=== PATIENT | female | born 1950 | race Caucasian/White ===

== ENCOUNTER 2023-05-08 17:37 | Inpatient (IN) | payer MEDICARE, BC ==
[~2023-05-08] VITALS: Ht 165.1 cm; Wt 99.3 kg
[2023-05-08 18:31] LABS: Basophils # (auto) 0.1 10 ^3/uL (0-0.2); Basophils % (auto) 0.9 % (0.0-2.0); Eosinophils # (auto) 0.1 10 ^3/uL (0-0.8); Eosinophils % (auto) 1.6 % (0.0-7.0); Hematocrit 36.3 % (36.0-46.0); Hemoglobin 12.5 g/dL (12.2-16.2); Lymphocytes # (auto) 1.7 10 ^3/uL (0.4-5.4); Lymphocytes % (auto) 23.5 % (10.0-50.0); Mean Corpuscular Hemoglobin 33.1 pg (28.0-32.0); Mean Corpuscular Hgb Conc. 34.3 g/dL (32.0-36.0); Mean Corpuscular Volume 96.3 fL (80.0-100.0); Monocytes # (auto) 0.5 10 ^3/uL (0-1.3); Monocytes % (auto) 6.1 % (0.0-12.0); Neutrophils % (auto) 67.9 % (37.0-80.0); Nucleated Red Blood Cells % 0.2 %; Red Blood Cells 3.77 10^6/uL (4.0-5.20); Red Cell Distribution Width 12.5 % (11.8-14.3); White Blood Cell 7.4 10^3/uL (4.4-10.8)
[2023-05-08 18:45] LABS: INR 1.07 (0.9-1.15); Partial Thromboplastin Time 26.5 SEC (24.5-34.5)
[2023-05-08 18:49] LABS: Albumin 3.7 g/dL (3.4-5.0); Calcium 7.3 mg/dL (8.5-10.1); Potassium 4.1 mmol/L (3.5-5.1)
[2023-05-08 18:52] LABS: BUN/Creatinine Ratio 14.6 (10.0-20.0); Bilirubin, Total 0.3 mg/dL (0.2-1.0); Total Protein 7.2 g/dL (6.4-8.2)
[2023-05-08 18:59] LABS: Free T3 3.06 pg/mL (2.3-4.2); Free T4 (Free Thyroxine) 1.31 ng/dL (0.89-1.76)
[2023-05-08] MEDS ORDERED: CALCITRIOL 0.25 MCG CAP PO ONE (21:15)
[2023-05-08] MEDS ORDERED: ACETAMINOPHEN 325 MG TAB PO PRN (21:30)
[2023-05-08] MEDS ORDERED: DOCUSATE SOD 100 MG CAP PO PRN (21:30)
[2023-05-08] MEDS ORDERED: ONDANSETRON HCL 4 MG/2 ML VIAL IV PRN (21:30)
[2023-05-08] MEDS ORDERED: ATORVASTATIN 20 MG TAB PO SCH (22:00)
[2023-05-08] MEDS ORDERED: CALCIUM W/VIT D (600MG/400IU) TAB PO ONE (22:45)
[2023-05-08] MEDS ORDERED: NITROGLYCERIN 0.4 MG SL TAB SL PRN (23:30)
[2023-05-08] MEDS ORDERED: MORPHINE SULFATE INJ 2 MG/ml SYRG IV PRN (23:30)
[2023-05-09] VITALS (7 sets, daily range): BP systolic 110–140; BP diastolic 49–61; PULSE 59–78; RESP 15–18; TEMP 97.6–97.8; O2SAT 95–97
[2023-05-09] MEDS: SODIUM CHLORIDE 0.9% 1,000 ML IV SCH ×2 (00:01→14:10)
[2023-05-09] MEDS: LEVOTHYROXINE SODIUM 88 MCG TAB PO SCH (06:31)
[2023-05-09 06:37] LABS: Potassium 3.2 mmol/L (3.5-5.1)
[2023-05-09 06:52] LABS: Albumin 3.3 g/dL (3.4-5.0); BUN/Creatinine Ratio 17.1 (10.0-20.0); Bilirubin, Total 0.3 mg/dL (0.2-1.0); Calcium 7.4 mg/dL (8.5-10.1); Total Protein 6.8 g/dL (6.4-8.2)
[2023-05-09 07:05] LABS: Basophils # (auto) 0 10 ^3/uL (0-0.2); Basophils % (auto) 0.4 % (0.0-2.0); Eosinophils # (auto) 0.2 10 ^3/uL (0-0.8); Eosinophils % (auto) 2.6 % (0.0-7.0); Hematocrit 32.5 % (36.0-46.0); Hemoglobin 11.3 g/dL (12.2-16.2); Lymphocytes # (auto) 1.6 10 ^3/uL (0.4-5.4); Mean Corpuscular Hemoglobin 33.1 pg (28.0-32.0); Mean Corpuscular Hgb Conc. 34.9 g/dL (32.0-36.0); Mean Corpuscular Volume 94.9 fL (80.0-100.0); Monocytes # (auto) 0.5 10 ^3/uL (0-1.3); Monocytes % (auto) 7.3 % (0.0-12.0); Neutrophils # (auto) 4.2 10 ^3/uL (1.6-8.6); Neutrophils % (auto) 64.7 % (37.0-80.0); Nucleated Red Blood Cells % 0.1 %; Red Blood Cells 3.42 10^6/uL (4.0-5.20); Red Cell Distribution Width 12.4 % (11.8-14.3); White Blood Cell 6.5 10^3/uL (4.4-10.8)
[2023-05-09] MEDS: ASPirin 81 mg TAB PO SCH (10:00)
[2023-05-09] MEDS ORDERED: OMEP1CAP70 PO (12:04)
[2023-05-09] MEDS ORDERED: CALC0.5C PO (12:04)
[2023-05-09] MEDS ORDERED: LEVO88TA2 PO (12:04)
[2023-05-09] MEDS ORDERED: EXEM25TA4 PO (12:04)
[2023-05-09] MEDS ORDERED: GABA-1250 PO (12:04)
[2023-05-09] MEDS ORDERED: POTA-220 PO (12:05)
[2023-05-09] MEDS ORDERED: POTASSIUM CHL 20 Meq TABLET PO ONE (12:15)
[2023-05-09] MEDS ORDERED: CALCIUM W/VIT D (600MG/400IU) TAB PO ONE (12:15)
[2023-05-09] MEDS: CALCIUM W/VIT D (600MG/400IU) TAB PO SCH (18:06)
[2023-05-09] MEDS: ATORVASTATIN 20 MG TAB PO SCH (21:13)
[2023-05-10] VITALS (7 sets, daily range): BP systolic 115–146; BP diastolic 57–69; PULSE 57–68; RESP 14–18; TEMP 97.8–98.7; O2SAT 96–99
[2023-05-10] MEDS: LEVOTHYROXINE SODIUM 88 MCG TAB PO SCH (06:17)
[2023-05-10] MEDS: SODIUM CHLORIDE 0.9% 1,000 ML IV SCH ×2 (06:18→23:30)
[2023-05-10 06:59] LABS: Calcium 6.6 mg/dL (8.5-10.1); Potassium 3.5 mmol/L (3.5-5.1)
[2023-05-10 07:05] LABS: Basophils # (auto) 0 10 ^3/uL (0-0.2); Basophils % (auto) 0.4 % (0.0-2.0); Eosinophils # (auto) 0.1 10 ^3/uL (0-0.8); Eosinophils % (auto) 2.3 % (0.0-7.0); Hematocrit 30.2 % (36.0-46.0); Hemoglobin 10.3 g/dL (12.2-16.2); Lymphocytes # (auto) 1.3 10 ^3/uL (0.4-5.4); Lymphocytes % (auto) 22.3 % (10.0-50.0); Mean Corpuscular Hgb Conc. 34.2 g/dL (32.0-36.0); Mean Corpuscular Volume 96.8 fL (80.0-100.0); Monocytes # (auto) 0.4 10 ^3/uL (0-1.3); Monocytes % (auto) 6.6 % (0.0-12.0); Neutrophils % (auto) 68.4 % (37.0-80.0); Nucleated Red Blood Cells % 0.1 %; Red Blood Cells 3.12 10^6/uL (4.0-5.20); Red Cell Distribution Width 12.6 % (11.8-14.3); White Blood Cell 5.8 10^3/uL (4.4-10.8)
[2023-05-10] MEDS: GABAPENTIN 300 MG CAP PO SCH (10:11)
[2023-05-10] MEDS: CALCIUM W/VIT D (600MG/400IU) TAB PO SCH ×2 (10:11→18:18)
[2023-05-10] MEDS: ASPirin 81 mg TAB PO SCH (10:11)
[2023-05-10] MEDS ORDERED: CALCIUM GLUC 1,000mg/50ml-NS 50 ML IV ONE (11:15)
[2023-05-10] MEDS: HYDROcodone-ACET 5/325MG TAB PO PRN (18:18)
[2023-05-10] MEDS: ATORVASTATIN 20 MG TAB PO SCH (21:31)
[2023-05-11] MEDS: HYDROcodone-ACET 5/325MG TAB PO PRN (03:50)
[2023-05-11 05:00] VITALS: BP 149/67; PULSE 63; RESP 17; TEMP 98; O2SAT 97
[2023-05-11] MEDS: LEVOTHYROXINE SODIUM 88 MCG TAB PO SCH (06:03)
[2023-05-11 07:03] LABS: Basophils # (auto) 0 10 ^3/uL (0-0.2); Basophils % (auto) 0.4 % (0.0-2.0); Eosinophils # (auto) 0.2 10 ^3/uL (0-0.8); Eosinophils % (auto) 2.4 % (0.0-7.0); Hematocrit 32.8 % (36.0-46.0); Hemoglobin 11.1 g/dL (12.2-16.2); Lymphocytes # (auto) 1.4 10 ^3/uL (0.4-5.4); Lymphocytes % (auto) 18.9 % (10.0-50.0); Mean Corpuscular Hemoglobin 32.8 pg (28.0-32.0); Mean Corpuscular Hgb Conc. 33.8 g/dL (32.0-36.0); Mean Corpuscular Volume 97.1 fL (80.0-100.0); Monocytes # (auto) 0.4 10 ^3/uL (0-1.3); Monocytes % (auto) 6.2 % (0.0-12.0); Neutrophils # (auto) 5.2 10 ^3/uL (1.6-8.6); Neutrophils % (auto) 72.1 % (37.0-80.0); Red Blood Cells 3.38 10^6/uL (4.0-5.20); Red Cell Distribution Width 12.5 % (11.8-14.3); White Blood Cell 7.2 10^3/uL (4.4-10.8)
[2023-05-11 07:54] LABS: Potassium 3.4 mmol/L (3.5-5.1)
[2023-05-11 07:59] LABS: BUN/Creatinine Ratio 19.8 (10.0-20.0); Calcium 7.9 mg/dL (8.5-10.1)
[2023-05-11 08:00] VITALS: PULSE 52; PULSE 69; RESP 20; O2SAT 97
[2023-05-11] MEDS: CALCIUM W/VIT D (600MG/400IU) TAB PO SCH ×2 (08:27→18:00)
[2023-05-11 09:00] VITALS: BP 169/73; PULSE 69; RESP 20; TEMP 98.1; O2SAT 97
[2023-05-11] MEDS ORDERED: POTASSIUM EFFERVESENT TAB 25 MEQ PO ONE (09:15)
[2023-05-11 09:31] LABS: Albumin 2.9 g/dL (3.4-5.0); Magnesium 1.7 mg/dL (1.6-2.6); Phosphorus 2.7 mg/dL (2.5-4.90)
[2023-05-11] MEDS: ASPirin 81 mg TAB PO SCH (11:08)
[2023-05-11] MEDS: GABAPENTIN 300 MG CAP PO SCH (11:08)
[2023-05-11] MEDS: SODIUM CHLORIDE 0.9% 1,000 ML IV SCH (16:10)
[2023-05-11 16:11] VITALS: BP 169/73; PULSE 69; RESP 20; TEMP 36.7; O2SAT 97
[2023-05-11 16:23] VITALS: BP 122/51; PULSE 62; RESP 18; TEMP 98.1; O2SAT 91
== END 2023-05-11 17:10 | disposition home or self-care (01) | DRG 641 ==
LOC: ER 17:37 → TELE 23:29 → TELE-WESTW 05-09 10:55
PROVIDERS: ADMIT Nurse Practitioner Family; ATTEND Student in an Organized Health Care Education/Training Program
DX: E83.51 Hypocalcemia (principal); E87.6 Hypokalemia; E07.9 Disorder of thyroid, unspecified; E78.5 Hyperlipidemia, unspecified; E03.9 Hypothyroidism, unspecified; E66.9 Obesity, unspecified; Z85.3 Personal history of malignant neoplasm of breast; Z68.36 Body mass index [BMI] 36.0-36.9, adult
CPT/HCPCS: 36415; 70450; 71045; 80048; 80053; 82040; 82306; 82962; 83735; 83880; 83970; 84100; 84439; 84443; 84481; 84484; 85025; 85610; 85730; 93005; G0378

== ENCOUNTER → 2024-10-12 | Outpatient (CLI) | payer MEDICARE, BC ==
[~2024-10-12] VITALS: Ht 33 cm; Wt 0.5 kg
[~2024-10-12] MED LIST: CALC0.5C PO; EXEM25TA4 PO; GABA-1250 PO; LEVO88TA2 PO; OMEP1CAP70 PO; POTA-220 PO
[2024-10-12 10:30] VITALS: BP 117/65; PULSE 68; RESP 18; O2SAT 96
[2024-10-12] MEDS: CYANOCOBALAMIN (B-12) 1000 MCG/1 ML VIAL IM ONE (10:30)
[2024-10-12] MEDS: MVI in SODIUM CHLORIDE 0.9% 1,000 ML IVB ONE (10:56)
[2024-10-12] MEDS: CYANOCOBALAMIN (B-12) 1000 MCG/1 ML VIAL ONE (11:17)
[2024-10-12] MEDS: MULTIPLE VIT 10 ML IV ONE (11:17)
[2024-10-12 14:20] VITALS: BP 123/64; PULSE 63; RESP 17; O2SAT 98
== END | disposition home or self-care (01) ==
LOC: CHF HDHVI 10:26
PROVIDERS: ATTEND Internal Medicine Cardiovascular Disease
DX: E86.0 Dehydration (principal); E78.5 Hyperlipidemia, unspecified; E03.9 Hypothyroidism, unspecified; Z68.36 Body mass index [BMI] 36.0-36.9, adult
CPT/HCPCS: 96365; 96366; 96372; G0463; J3411; J3420; J3475; J7030; 96360; 96361